=== PATIENT | male | born 1960 | race Caucasian/White ===

== ENCOUNTER → 2016-05-16 | Outpatient (CLI) | payer OTHER ==
--- NOTE | 2016-05-16 17:25 | RAD ---
Three-view radiographs of the right knee 05/16/2016 Clinical history: Right knee pain. An AP digital radiograph of both knees and a lateral and sunrise digital radiographs of the right knee were obtained. No fracture or dislocation of the right knee is seen. Mild degenerative changes are seen involving all 3 compartments of both knees, right greater than left. Impression: Mild degenerative changes are seen involving the right knee as outlined above. No acute osseous abnormality is seen.
--- NOTE | 2016-05-16 17:28 | RAD ---
AP pelvis radiograph 05/16/2016 Clinical history: Pelvic pain. AP digital radiograph of the pelvis to include both hips was obtained. The patient is status post left GONZALO. Moderate to severe degenerative changes are seen involving the right hip. Calcifications are seen within the pelvis consistent with phleboliths. No pelvic bone fracture is seen. Impression: Moderate to severe degenerative changes are seen involving the right hip. No acute osseous abnormality is seen.
== END | disposition home or self-care (01) ==
LOC: DXRADRC 13:09
PROVIDERS: ATTEND Orthopaedic Surgery Sports Medicine
DX: S89.81XD Other specified injuries of right lower leg, subsequent encounter (principal); M25.561 Pain in right knee; X58.XXXD Exposure to other specified factors, subsequent encounter
CPT/HCPCS: 73562; 76010